=== PATIENT | female | born 2000 | race Hispanic/Latino ===

== ENCOUNTER 2022-11-03 08:44 | Emergency (ER) | payer OTHER ==
[~2022-11-03] VITALS: Ht 154.9 cm; Wt 54.5 kg
[2022-11-03] MEDS ORDERED: FAMOTIDINE 20 MG/2 ML VIAL IV STA ×2 (09:15→09:19)
[2022-11-03] MEDS ORDERED: ONDANSETRON HCL INJ 2MG/ML 2ML 2 MG/ML VIAL IV STA ×2 (09:15→09:19)
[2022-11-03] MEDS ORDERED: KETOROLAC TROMETHAMINE 30 MG/ML VIAL IV STA (09:21)
[2022-11-03] MEDS ORDERED: SODIUM CHLORIDE 0.9% 1000ML 1,000 ML ONE (09:29)
[2022-11-03] MEDS ORDERED: FAMOTIDINE 20 MG/2 ML VIAL IV ONE (09:29)
[2022-11-03] MEDS ORDERED: ONDANSETRON HCL INJ 2MG/ML 2ML 2 MG/ML VIAL ONE (09:29)
[2022-11-03] MEDS ORDERED: SODIUM CHLORIDE 0.9% 1000ML 1,000 ML IV ONE (09:30)
[2022-11-03] MEDS ORDERED: KETOROLAC TROMETHAMINE 30 MG/ML VIAL ONE (09:45)
[2022-11-03] MEDS ORDERED: ONDANSETRON ODT4 MG PO (10:10)
[2022-11-03] MEDS ORDERED: KETOROLAC TROME10 MG PO (10:12)
== END 2022-11-03 10:22 | disposition home or self-care (01) ==
LOC: FSED 08:52
DX: R11.2 Nausea with vomiting, unspecified (principal); N20.0 Calculus of kidney; N83.8 Other noninflammatory disorders of ovary, fallopian tube and broad ligament
CPT/HCPCS: 74176; 80053; 81003; 81025; 85025; 87400; 96374; 96375; 99284; J1885; J2405; J7030